=== PATIENT | male | born 1955 | race Caucasian/White ===

== ENCOUNTER 2019-03-18 09:22 | Inpatient (IN) | payer OTHER ==
[~2019-03-18] VITALS: Ht 154.9 cm; Wt 77.6 kg
[~2019-03-18 09:22] MED LIST: ACET-1082 PO; ALBU0.0912 IH; BUS5 PO; IBUP-2230 PO; METF500T PO; PARO30TA22 PO; QUET300T1 PO; TAMS0.4C96 PO
[2019-03-18 09:27] VITALS: BP 109/69
--- NOTE | 2019-03-18 09:35 | NUR ---
PATIENT AMBULATED STEADY GAIT TO BED 9.
--- NOTE | 2019-03-18 09:40 | NUR ---
63 Y/O M C/O LOWER ABDOMINAL PAIN 10/10 WHEN PRESSING ON THE LOWER ABDOMEN, NAUSEA COUGH AND VOMITING ONCE YESTERDAY WITH CHILLS, NO FEVER. NO BLOOD IN THE STOOL OR URINE. HX: SEIZURE 2 YEARS AGO, RIGHT HIP REPLACEMENT, ALLERGY TO FLU SHOT
--- NOTE | 2019-03-18 09:59 | NUR ---
ER AT BEDSIDE
[2019-03-18] MEDS ORDERED: KETOROLAC 30 MG/ML VIAL IVP ONE (10:00)
[2019-03-18] MEDS ORDERED: ONDANSETRON 4 MG/2 ML VIAL IVP ONE (10:00)
[2019-03-18] MEDS ORDERED: FAMOTIDINE 20 MG/2 ML VIAL IVP ONE (10:00)
[2019-03-18] MEDS ORDERED: NACL 0.9% 1,000 ML IV SCH (10:00)
--- NOTE | 2019-03-18 10:19 | NUR ---
PT GOING TO RADIOLOGY VIA W/C
[2019-03-18 10:37] LABS: BASOPHILS % (AUTO) 0.3 % (0.0-2.0); EOSINOPHILS # (AUTO) 0.2 K/uL (0-0.4); EOSINOPHILS % (AUTO) 5.4 % (0.0-4.0); HEMATOCRIT 40.2 % (36-52); HEMOGLOBIN 13.4 g/dL (12.0-18.0); LYMPHOCYTES # (AUTO) 0.4 K/uL (2.0-11.5); LYMPHOCYTES % (AUTO) 13.9 % (20.5-51.1); MEAN CORPUSCULAR HEMOGLOBIN 33 pg (27-31); MEAN CORPUSCULAR HGB CONC 33 g/dL (33-37); MEAN CORPUSCULAR VOLUME 100.7 fL (80-94); MONOCYTES # (AUTO) 0.3 K/uL (0.8-1.0); MONOCYTES % (AUTO) 8.6 % (1.7-9.3); NEUTROPHILS # (AUTO) 2.1 K/uL (1.8-7.7); NEUTROPHILS % (AUTO) 71.8 % (42.2-75.2); PLATELET COUNT (AUTO) 115 K/uL (140-450); WHITE BLOOD COUNT (AUTO) 2.9 K/uL (4.8-10.8)
[2019-03-18 11:11] LABS: BILIRUBIN,URINE NEGATIVE (NEGATIVE); BLOOD, URINE 3+ (NEGATIVE); COLOR,URINE YELLOW (YELLOW); LEUKOCYTE ESTERASE ,URINE NEGATIVE (NEGATIVE); NITRITE, URINE NEGATIVE (NEGATIVE); UGLUCOSE NEGATIVE (NEGATIVE)
[2019-03-18 11:22] LABS: ALBUMIN 3.2 g/dL (3.4-5.0); ANION GAP 9.9 (8-16); CARBON DIOXIDE 28.3 mmol/L (21-32); CREATININE 1.9 mg/dL (0.7-1.3); POTASSIUM 4.2 mmol/L (3.5-5.1); TOTAL BILIRUBIN 0.5 mg/dL (0.0-1.0)
[2019-03-18 11:37] LABS: RBC,URINE 11-20 (MOD) /HPF (0-5); WBC,URINE 0-5 /HPF (0-5)
[2019-03-18] MEDS ORDERED: DOCU-299 PO (11:37)
[2019-03-18] MEDS ORDERED: LAM25 PO (11:37)
[2019-03-18] MEDS ORDERED: BUS5 PO (11:37)
[2019-03-18] MEDS ORDERED: FINA5TAB1 PO (11:37)
[2019-03-18] MEDS ORDERED: ACET-1195 PO (11:37)
[2019-03-18] MEDS ORDERED: PAX20 PO (11:37)
[2019-03-18] MEDS ORDERED: [UNRECOGNIZED DRUG - CODE] PO (11:37)
[2019-03-18] MEDS ORDERED: ACET-8386 PO (11:37)
[2019-03-18 11:38] LABS: APPEARANCE,URINE SLIGHTLY HAZY (CLEAR)
[2019-03-18] MEDS ORDERED: NACL 0.9% 1,000 ML IV ONE (12:25)
[2019-03-18] MEDS ORDERED: ACETAMINOPHEN 325 MG TAB PO PRN (12:55)
[2019-03-18] MEDS: NACL 0.9% 1,000 ML IV SCH ×2 (12:55→22:55)
--- NOTE | 2019-03-18 13:20 | NUR ---
Patient will be admitted to care of DR. CEDEÑO. Admited to MED SURG TELE. Will go to room 119A. Belongings list completed. Report to JANNETTE DYSON.
--- NOTE | 2019-03-18 13:30 | NUR ---
RECEIVED PT FROM ED NURSE. PT IS AWAKE AND ALERT, AND AMBULATORY. NO S/S OF ACUTE DISTRESS OR C/O PAIN AT THIS TIME. PT IS ON ROOM AIR, SKIN IS INTACT. IV SITE R AC 20 G. MRSA NARES SWAB TAKEN. TELEMONITORING APPLIED. VS UPON ADMISSION: BP 98/68, HR 62, O2 97, TEMP 97.9, RR 18. CALL LIGHT GIVEN WITHIN REACH.
[2019-03-18] MEDS ORDERED: DOCUSATE SODIUM 100 MG GELCAP PO PRN (15:20)
[2019-03-18] MEDS ORDERED: ACETAMINOPHEN EXTRA STRENGTH 500 MG TAB PO PRN (15:20)
[2019-03-18] MEDS ORDERED: HYDROcodone/APAP 5/325 MG 1 TAB TAB PO PRN (15:20)
[2019-03-18 15:36] VITALS: BP 98/68
[2019-03-18 16:00] VITALS: BP 103/68
--- NOTE | 2019-03-18 16:27 | NUR ---
CALLED PT'S CAREGIVER, BAKARI, TO CLARIFY PT'S SEROQUEL DOSE. SHE STATES PT TAKES 100 MG SEROQUEL IN THE MORNING, AND 100 MG AT NIGHT. PHARMACIST MADE AWARE. Addendum: 03/18/19 at 1629 by Rebekah Montalvo RN CAREGIVER'S PHONE # is [phone]
--- NOTE | 2019-03-18 17:45 | NUR ---
PT SEEN BY DR ZHAO.
--- NOTE | 2019-03-18 19:18 | NUR ---
PT ENDORSED TO LINOTYPE WORKER NURSE IN STABLE CONDITION.
--- NOTE | 2019-03-18 19:18 | NUR ---
RECIEVED PT AAOX4 , IV SITE INTACT AND PATENT , AMBULATORY - WITH STABLE GAIT ALTHOUGH WITH HX OF HIP REPLACEMENT SURGERY , NO C/O PAIN AT THIS TIME . PLAN OF CARE DISCUSSED AND VERBALIZE UNDERSTANDING - CALL LIGHT WITHIN REACH . ON SAFETY PRECAUTION PROTOCOL - REMINDS HIM THE USE OF CALL LIGHT WHEN HE NEEDED HELP . WILL CONT. TO MONITOR.
[2019-03-18 20:00] VITALS: BP 110/60
[2019-03-18] MEDS: COLCHICINE 0.6 MG TAB PO SCH (21:00)
[2019-03-18] MEDS ORDERED: QUETIAPINE FUMARATE PO SCH (21:00)
[2019-03-18] MEDS: busPIRone 5 MG TAB PO SCH (21:05)
[2019-03-18] MEDS: QUEtiapine FUMARATE 100 MG TAB PO SCH (21:06)
[2019-03-18] MEDS: lamoTRIgine 25 MG TAB PO SCH (21:06)
--- NOTE | 2019-03-18 22:00 | NUR ---
MADE ROUNDS , NO COMPLAIN MADE AT THIS TIME , CALL LIGHT WITHIN REACH - WILL CONT. TO MONITOR.
[2019-03-19] VITALS (7 sets, daily range): BP systolic 98–132; BP diastolic 60–82
--- NOTE | 2019-03-19 | NUR ---
ASSIST TO BATHROOM - VOIDED FREELY - BACK TO BED NO C/O MADE AT THIS TIME . CALL LIGHT WITHIN REACH.
[2019-03-19] MEDS: NACL 0.9% 1,000 ML IV SCH ×2 (03:47→17:43)
--- NOTE | 2019-03-19 04:00 | NUR ---
MADE ROUNDS NO SIGNS OF DISTRESS NOTED AT THIS TIME . CALL LIGHT WITHIN REACH.
[2019-03-19 07:01] LABS: ANION GAP 10.2 (8-16); CREATININE 1.7 mg/dL (0.7-1.3); POTASSIUM 4.2 mmol/L (3.5-5.1)
--- NOTE | 2019-03-19 07:30 | NUR ---
ENDORSED TO AM SHIFT , NO N/V , NO DIARRHEA , NO ABDL. PAIN FOR THE WHOLE NIGHT . STABLE CONDITION.
--- NOTE | 2019-03-19 07:31 | NUR ---
RECEIVED BEDSIDE REPORT FROM WELLNESS ASSISTANT. PATIENT IS AWAKE, ALERT AND ORIENTEDX4. NO SIGNS OF DISTRESS ON RA. PATIENT HAS A MENTAL DELAY. SKIN IS INTACT. AMBULATORY. CONTINENT. ABLE TO MAKE NEEDS KNOWN. IV ON R AC 20G INFUSING NS AT 100. CLEAN, DRY AND INTACT. TELE MONITOR IN PLACE. BED IN LOW POSITION. CALL LIGHT WITHIN REACH. WILL CONTINUE TO MONITOR THE PATIENT
--- NOTE | 2019-03-19 08:27 | NUR ---
PATIENT HAS BEEN SCREENED AND CATEGORIZED MODERATE NUTRITION RISK. PATIENT WILL BE SEEN WITHIN 3-5 DAYS OF ADMISSION. 03/21/19 03/23/[address]
[2019-03-19] MEDS: FAMOTIDINE 20 MG TAB PO SCH (09:11)
[2019-03-19] MEDS: busPIRone 5 MG TAB PO SCH ×2 (09:11→20:10)
[2019-03-19] MEDS: NAPROXEN 500 MG TAB PO SCH ×2 (09:12→17:43)
[2019-03-19] MEDS: lamoTRIgine 25 MG TAB PO SCH ×2 (09:12→20:11)
[2019-03-19] MEDS: PARoxetine 20 MG TAB PO SCH (09:12)
[2019-03-19] MEDS: QUEtiapine FUMARATE 100 MG TAB PO SCH ×2 (09:13→20:11)
[2019-03-19] MEDS: COLCHICINE 0.6 MG TAB PO SCH ×2 (09:13→20:11)
[2019-03-19] MEDS: FINASTERIDE 5 MG TAB PO SCH (09:13)
--- NOTE | 2019-03-19 09:18 | NUR ---
ADMINISTERED MEDS. PATIENT TOLERATED WELL. EDUCATED ON SIDE EFFECTS. WILL CONTINUE TO MONITOR THE PATIENT
--- NOTE | 2019-03-19 11:28 | NUR ---
Relay Mechanic Note: Basic Screen: Yes High Risk DC Screen Yes Name: JADON PALMA Home Relationship: BROTHER Pre-Admission Living Arrangements: Lives with Other Other: JOSE BAILON [phone] - [facility] Prior ADL Needs Assistance Current Home Health Name/Tel: N/A Current DME/02 Name/Tel: N/A Current Hospice Name/Tel: N/A Current Dialysis Name/Tel: N/A Healthcare Decision Maker: Next of Kin Other: JADON PALMA Advance Directive No Physician Orders for Life Sustaining Treatment Form No Patient/Family Have Educational Needs No Discipline: Case Mgt/Social Svcs Tentative Discharge Plan/Destination: No Needs Identified Will require assistance post discharge: No Referred to Diesel Engine Assembler: No Tentative Discharge Plan Summary: Patient is a 63-year-old male admitted for abdominal pain. Patient has PMHX of autism and developmental delays. Patient was admitted from home. SW contacted Jose Bailon, patient's primary caregiver [phone]. Per Jose, patient lives with her family through [facility]. Jose stated that patient has a [place] Dispatcher Street Department named Shelton Cuba [phone] who checks on patient weekly. Jose stated that patient's healthcare decision maker is brother, Jadon Palma [phone] and his IRC Worker is Alexandria Jamison [phone]. Per Jose, patient's IRC Worker is aware of his hospitalization. Jose stated that patient's tentative plan after discharge is to return to her home. No further needs identified. Signature: ANGELA Vazquez Date: Mar 19, 2019 Time: 11:26
--- NOTE | 2019-03-19 11:30 | NUR ---
PATIENT IN NO DISTRESS. NO COMPLAINTS AT THIS TIME. WILL CONTINUE TO MONITOR THE PATIENT
--- NOTE | 2019-03-19 13:42 | NUR ---
PATIENT LAYING IN BED. NO SIGNS OF DISTRESS. WILL CONTINUE TO MONITOR THE PATIENT.
--- NOTE | 2019-03-19 14:43 | NUR ---
PATIENT IS SLEEPING. NO SIGNS OF DISTRESS. WILL CONTINUE TO MONITOR
--- NOTE | 2019-03-19 14:48 | NUR ---
DC [age] YRS OLD MALE WAS ADMITTED FROM THE RETIREMENT WITH A DX OF ABDOMINAL PAIN. PT HAS A HX OF PSYCHIATRIC DISORDER , MENTALLY DELAYED. CT ABD/ PELVIS PERICARDIAC EFFUSION AND COLONIC DIVERTICULOSIS AND DHN. ADMINISTERED IVF CARDIOLOGY CONSULT FOR PERICARDIAC EFFUSION AND ECHO ORDERED. DC PLAN TO GO BACK TO RETIREMENT WHEN STABLE FOR DISCHARGE. CM TO FOLLOW
--- NOTE | 2019-03-19 16:00 | NUR ---
PATIENT RESTING IN BED. WILL CONTINUE TO MONITOR
--- NOTE | 2019-03-19 17:46 | NUR ---
ADMINISTERED MEDS. PATIENT TOLERATED WELL. WILL CONTINUE TO MONITOR THE PATIENT
--- NOTE | 2019-03-19 19:05 | NUR ---
GAVE BEDSIDE REPORT TO LAWN TECHNICIAN NURSE. ENDORSED PATIENT IN STABLE CONDITION
--- NOTE | 2019-03-19 19:35 | NUR ---
RECEIVED REPORT FROM AM RN IN BED AWAKE AND ALERT. PT. MENTALLY CHALLENGED. ABLE TO VERBALIZE NEEDS WELL. DX. OF ABDOMINAL PAIN. CONSULT WITH Nicki WILSON/MACHINE IRONER. ABLE TO VERBALIZE NEEDS WELL. IVF SITE TO RIGHT AC # [address] AND WITH GOOD BLOOD RETURN. TELEMETRY MONITORING.
--- NOTE | 2019-03-19 20:14 | NUR ---
ALL P.O. MEDICATIONS TAKEN WELL. NO S/S OF ASPIRATIONS. NO N/V. ABLE TO VERBALIZE NEEDS WELL.
[2019-03-19] MEDS ORDERED: TAMSULOSIN 0.4 MG CAP PO SCH (21:00)
--- NOTE | 2019-03-19 22:41 | NUR ---
PT. WALKING WITH POLE WITH HIM INSIDE ROOM. ENCOURAGED TO STAY IN BED AND REST RT SLEEPING TIME. "OK" NO COMPLAINTS OF ANY PAIN AT THIS TIME. ON TELEMETRY MONITORING.
--- NOTE | 2019-03-19 23:09 | NUR ---
PT. SLEEPING. WOKE UP EASILY WHEN CHECKED ON HIM. PROVIDED WITH WARM BLANKET RT HE SAID HE WAS COLD RT ROOM COLD. NO SOB. NO PAIN COMPLAINTS DONE. VERY HAPPY WITH WARM BLANKET PROVIDED. ABLE TO VERBALIZE SIMPLE NEEDS WELL. BED ALARM ON. CALL LIGHT WITH IN REACH.
--- NOTE | 2019-03-20 02:29 | NUR ---
PT. SLEEPING. NO RESTLESSNESS. CALL LIGHT WITH IN REACH. TELEMETRY MONITORING.
--- NOTE | 2019-03-20 04:22 | NUR ---
PT. AWAKE AND WENT RESTROOM. NO ASSIST NEEDED IN AMBULATING. ROM X 4. STANDS UP WELL ON HIS OWN. ABLE TO VERBALIZE SIMPLE NEEDS. DENIES ANY PAIN. NO SOB.
[2019-03-20 04:34] VITALS: BP 122/76
[2019-03-20] MEDS: NACL 0.9% 1,000 ML IV SCH ×2 (05:20→14:55)
--- NOTE | 2019-03-20 06:02 | NUR ---
PT. SLEEPING WELL THIS SHIFT. NO COMPLAINTS DONE. INDEPENDENT.
[2019-03-20 07:07] LABS: BASOPHILS % (AUTO) 0.5 % (0.0-2.0); EOSINOPHILS # (AUTO) 0.3 K/uL (0-0.4); EOSINOPHILS % (AUTO) 7.2 % (0.0-4.0); HEMOGLOBIN 12.9 g/dL (12.0-18.0); LYMPHOCYTES # (AUTO) 0.5 K/uL (2.0-11.5); LYMPHOCYTES % (AUTO) 14.6 % (20.5-51.1); MEAN CORPUSCULAR HEMOGLOBIN 33 pg (27-31); MEAN CORPUSCULAR HGB CONC 33 g/dL (33-37); MEAN CORPUSCULAR VOLUME 100.5 fL (80-94); MONOCYTES # (AUTO) 0.4 K/uL (0.8-1.0); MONOCYTES % (AUTO) 9.6 % (1.7-9.3); NEUTROPHILS # (AUTO) 2.5 K/uL (1.8-7.7); NEUTROPHILS % (AUTO) 68.1 % (42.2-75.2); PLATELET COUNT (AUTO) 106 K/uL (140-450); RED BLOOD CELL COUNT(AUTO) 3.88 MIL/uL (4.20-6.10); RED CELL DISTRIBUTION WIDTH 13.2 % (11.6-13.7); WHITE BLOOD COUNT (AUTO) 3.7 K/uL (4.8-10.8)
[2019-03-20 07:15] LABS: ANION GAP 11.4 (8-16); CREATININE 1.5 mg/dL (0.7-1.3); POTASSIUM 5.4 mmol/L (3.5-5.1)
--- NOTE | 2019-03-20 07:30 | NUR ---
Received report from lieutenant shift supervisor nurse. Pt is in bed in stable condition. No distress noted. Call light in reach.
[2019-03-20 08:00] VITALS: BP 138/82
[2019-03-20] MEDS: FAMOTIDINE 20 MG TAB PO SCH (09:17)
[2019-03-20] MEDS: PARoxetine 20 MG TAB PO SCH (09:17)
[2019-03-20] MEDS: lamoTRIgine 25 MG TAB PO SCH (09:17)
[2019-03-20] MEDS: FINASTERIDE 5 MG TAB PO SCH (09:17)
[2019-03-20] MEDS: QUEtiapine FUMARATE 100 MG TAB PO SCH (09:18)
[2019-03-20] MEDS: busPIRone 5 MG TAB PO SCH (09:19)
--- NOTE | 2019-03-20 09:52 | NUR ---
Received call from lab at 0994. Lab reported that pt is MRSA positive.
--- NOTE | 2019-03-20 10:37 | NUR ---
Pt is resting in bed in stable condition. Call light in reach.
[2019-03-20] MEDS ORDERED: MUPIROCIN CA NASAL 2% 1GM TUBE NS SCH (11:00)
[2019-03-20] MEDS ORDERED: CHLORHEXADINE GLUC 2% CLOTH TP SCH (11:00)
--- NOTE | 2019-03-20 11:43 | NUR ---
Talked to raulito brother made aware patient is for discharge, per raulito he will call correction ,and correction will contact us for the time of picker / packer
[2019-03-20 12:00] VITALS: BP 111/65
[2019-03-20] MEDS ORDERED: SODIUM ZIRCONIUM CYCLOSILICATE 10 GM POWD.PACK PO SCH (12:13)
--- NOTE | 2019-03-20 12:35 | NUR ---
Pt was to be discharged. Pt's potassium was 5.4. Called Dr Howell. As per Dr Howell give 20 gms, kayexalate. As per pharmacy give celine. Celine given. Ordered BMP as per Dr. Howell to check potassium values before discharge.
--- NOTE | 2019-03-20 15:00 | NUR ---
Pt is in bed in stable condition. Waiting for lab results before discharge. carton lettering machine operator by bedside. Call light in reach.
[2019-03-20 15:47] LABS: ANION GAP 11.9 (8-16); CREATININE 1.5 mg/dL (0.7-1.3); POTASSIUM 4.9 mmol/L (3.5-5.1)
--- NOTE | 2019-03-20 16:40 | NUR ---
Pt was discharged today. Pt's discharge instructions given to patient. Pt's belongings with patient. Pt's IV line removed. Catheter intact. No active bleeding noted. ID band removed. Pt's manager long term care was with patient at discharge. Pt walked with steady gait from bed to wheel chair. No distress noted. No complains of pain reported. Pt will make appointment with PCP.
--- NOTE | 2019-03-27 10:59 | NUR ---
PCP Appointment: SW attempted to contact patient's PCP to schedule appointment. Patient's PCP office was unable to be reached and voicemail box was full. SW will follow up.
== END 2019-03-20 16:25 | disposition home or self-care (01) | DRG 249 ==
LOC: MED 09:22 → MTU 12:36
PROVIDERS: ADMIT Internal Medicine Pulmonary Disease; ATTEND Internal Medicine Pulmonary Disease
DX: A08.4 Viral intestinal infection, unspecified (principal); N17.0 Acute kidney failure with tubular necrosis; I31.3 Pericardial effusion (noninflammatory); E86.0 Dehydration; K57.30 Diverticulosis of large intestine without perforation or abscess without bleeding; K40.90 Unilateral inguinal hernia, without obstruction or gangrene, not specified as recurrent; F29 Unspecified psychosis not due to a substance or known physiological condition; Z91.010 Allergy to peanuts; Z88.0 Allergy status to penicillin; Z88.8 Allergy status to other drugs, medicaments and biological substances; Z91.018 Allergy to other foods; Z79.899 Other long term (current) drug therapy
CPT/HCPCS: 36415; 80048; 80053; 81001; 83605; 83690; 83735; 85025; 87040; 87081; 93005; 96361; 96374; 96375; 97116; 97161-GP; 97530; 99285; J1885; J2405; J3490; J7030

== ENCOUNTER 2019-03-22 22:49 | Emergency (ER) | payer OTHER ==
[~2019-03-22] VITALS: Ht 165.1 cm; Wt 79.8 kg
[~2019-03-22 22:49] MED LIST changes: -ACET-1082 PO; +ACET-1195 PO; +ACET-8386 PO; -ALBU0.0912 IH; +DOCU-299 PO; +FINA5TAB1 PO; -IBUP-2230 PO; +LAM25 PO; -METF500T PO; -PARO30TA22 PO; +PAX20 PO; -QUET300T1 PO; +[UNRECOGNIZED DRUG - CODE] PO
--- NOTE | 2019-03-22 22:50 | NUR ---
TO BED # 12 AMBULATORY
[2019-03-22 22:51] VITALS: BP 120/67
[2019-03-22] MEDS ORDERED: LACTULOSE 20 GM/30 ML UDC PO ONE (23:10)
--- NOTE | 2019-03-22 23:25 | NUR ---
# 16 FR Coude catheter with 10 ml utilizing sterile technique. Immediate return of 100 ml PEDRO LUIS, CLOUDY urine noted. Bedside drainage bag placed below level of bladder. Pt tolerated procedure well.
--- NOTE | 2019-03-22 23:40 | NUR ---
63 Y/O MALE BIB BY DAUGHTER. PT. STATES HE COULD NOT URINATE SINCE THIS MORNING, D/C FROM [place] THIS MORNING. ERMD MADE AWARE OF STATUS. VSS. DAUGHTER AT BEDSIDE. WILL CONTINUE TO MONITOR. RX:TAMULOSIN; FINASTERIDE; LAMOTRIGINE; QUETIAPINE; BUSPIRONE; ACETAMINOPHEN; DOCUSATE; HYDROCODONE ALLERGIES: PENICILLINS; BUPROPRION, HONEY; PEANUT
[2019-03-23 00:50] VITALS: BP 118/65
--- NOTE | 2019-03-23 00:50 | NUR ---
Patient discharged with v/s stable. Written and verbal after care instructions given and explained. Patient alert, oriented and verbalized understanding of instructions. Ambulatory with steady gait. All questions addressed prior to discharge. ID band removed. Patient advised to follow up with PMD. Rx of LACTULOSE given. PATIENT AND PATIENT'S DAUGHTER educated on indication of medication including possible reaction and side effects. Opportunity to ask questions provided and answered.
== END 2019-03-23 00:50 | disposition home or self-care (01) ==
LOC: MED 22:49
DX: R33.9 Retention of urine, unspecified (principal); K59.00 Constipation, unspecified; Z88.0 Allergy status to penicillin; Z91.010 Allergy to peanuts; Z91.018 Allergy to other foods; Z79.899 Other long term (current) drug therapy
CPT/HCPCS: 51702; 99283; 99284

== ENCOUNTER 2019-04-15 18:00 | Emergency (ER) | payer OTHER ==
[~2019-04-15] VITALS: Ht 165.1 cm; Wt 70.8 kg
[2019-04-15 18:00] VITALS: BP 108/76
--- NOTE | 2019-04-15 18:08 | NUR ---
PT W/C ASSISTED TO BED 11.
--- NOTE | 2019-04-15 18:09 | NUR ---
PT TRUONG CATH IN PLACE, BALLOON DEFLATED, CATH PUSHED IN FURTHER, BALLOON REINFLATED, SMALL AMOUNT OF URINE DRAINING. PT GIVEN WATER, WILL MONITOR EFFECTIVENESS OF URINE OUTPUT.
--- NOTE | 2019-04-15 18:43 | NUR ---
BIB VIA WHEELCHAIR PT WAS SHOWERING THIS AFTERNOON AND BELIEVES THAT INDWELLING TRUONG CATH WAS PULLED OUT SLIGHTLY AND BALLOON BECAME DISLODGED. UPON ARRIVAL TO ER, TRUONG BALLOON WAS DEFLATED AND CATHETER WAS ADVANCED UNTIL URINE BEGAN FLOWING. PATIENT C/O CHRONIC PAIN IN RIGHT LOWER QUADRANT. INTENSIVE PMH INCLUDING: AUTISM, CANCER, LOW KIDNEY FUNCTION, KIDNEY STONES, HTN, KIDNEY STONES
--- NOTE | 2019-04-15 19:07 | NUR ---
COLLECTED URINE FOR DIPSTICK VIA TRUONG CATH
--- NOTE | 2019-04-15 19:17 | NUR ---
REPORT RECEIVED FROM JNANETTE SUAREZ.
--- NOTE | 2019-04-15 19:38 | NUR ---
Dr. Obrien examining patient.
[2019-04-15 19:42] LABS: APPEARANCE,URINE SL CLOUDY (CLEAR); BILIRUBIN,URINE NEGATIVE (NEGATIVE); BLOOD, URINE 3+ (NEGATIVE); LEUKOCYTE ESTERASE ,URINE 1+ (NEGATIVE); NITRITE, URINE NEGATIVE (NEGATIVE); UGLUCOSE NEGATIVE (NEGATIVE)
[2019-04-15 19:43] LABS: COLOR,URINE PINK (YELLOW)
--- NOTE | 2019-04-15 19:50 | NUR ---
PATIENT IS SITTING IN BED. IS AT BEDSIDE. WILL CONTINUE TO MONITOR.
[2019-04-15 20:07] LABS: RBC,URINE >100 /HPF (0-5); WBC,URINE 0-5 /HPF (0-5)
[2019-04-15 21:00] VITALS: BP 105/77
--- NOTE | 2019-04-15 21:00 | NUR ---
Patient discharged with v/s stable. Written and verbal after care instructions given and explained. Patient verbalized understanding. Ambulatory with walker. All questions addressed prior to discharge. Advised to follow up with PMD.
== END 2019-04-15 21:00 | disposition home or self-care (01) ==
LOC: MED 18:00
DX: T83.098A Other mechanical complication of other urinary catheter, initial encounter (principal); K40.90 Unilateral inguinal hernia, without obstruction or gangrene, not specified as recurrent; I10 Essential (primary) hypertension; Z79.899 Other long term (current) drug therapy; Z79.891 Long term (current) use of opiate analgesic; Z88.0 Allergy status to penicillin; Z91.010 Allergy to peanuts; Z91.018 Allergy to other foods; Z88.8 Allergy status to other drugs, medicaments and biological substances; Y84.6 Urinary catheterization as the cause of abnormal reaction of the patient, or of later complication, without mention of misadventure at the time of the procedure
CPT/HCPCS: 81001; 87086; 99283

== ENCOUNTER 2021-10-28 11:53 | Emergency (ER) | payer OTHER ==
[~2021-10-28] VITALS: Ht 167.6 cm; Wt 72.6 kg
[2021-10-28 11:57] VITALS: BP 113/62
[2021-10-28] MEDS ORDERED: NAPR-1704 PO (13:30)
--- NOTE | 2021-10-28 13:37 | NUR ---
Patient discharged with v/s stable. Written and verbal after care instructions ABOUT COSTOCHONDRITIS given and explained. Patient alert, oriented and verbalized understanding of instructions. Ambulatory with steady gait. All questions addressed prior to discharge. ID band removed. Patient advised to follow up with PMD. Rx of NAPROXEN given. Patient educated on indication of medication including possible reaction and side effects. Opportunity to ask questions provided and answered.
== END 2021-10-28 13:37 | disposition home or self-care (01) ==
LOC: MED 11:53
DX: M94.0 Chondrocostal junction syndrome [Tietze] (principal); M25.561 Pain in right knee; E11.9 Type 2 diabetes mellitus without complications; I10 Essential (primary) hypertension; F84.0 Autistic disorder; Z88.0 Allergy status to penicillin; Z88.6 Allergy status to analgesic agent; Z91.010 Allergy to peanuts; Z88.8 Allergy status to other drugs, medicaments and biological substances; Z79.899 Other long term (current) drug therapy
CPT/HCPCS: 71101; 99283

== ENCOUNTER 2023-10-19 07:18 | Inpatient (IN) | payer OTHER, MEDICARE ==
[2023-10-19] VITALS (7 sets, daily range): BP systolic 125–182; BP diastolic 78–90; PULSE 61–76; RESP 18–20; TEMP 97.1–97.8; O2SAT 96–99
[~2023-10-19] VITALS: Ht 165.1 cm; Wt 70.3 kg
[~2023-10-19 07:18] MED LIST changes: -ACET-8386 PO; +ACET-8905 PO; +FINA-54 PO; -FINA5TAB1 PO; +NAPR-1704 PO; +[UNRECOGNIZED DRUG - CODE] PO; -[UNRECOGNIZED DRUG - CODE] PO
[2023-10-19 08:34] LABS: BASOPHILS % (AUTO) 0.7 % (0.0-2.0); EOSINOPHILS # (AUTO) 0.3 K/uL (0-0.4); EOSINOPHILS % (AUTO) 6.7 % (0.0-4.0); HEMATOCRIT 41.1 % (36-52); HEMOGLOBIN 13.8 g/dL (12.0-18.0); LYMPHOCYTES # (AUTO) 0.7 K/uL (2.0-11.5); LYMPHOCYTES % (AUTO) 16.5 % (20.5-51.1); MEAN CORPUSCULAR HEMOGLOBIN 34 pg (27-31); MEAN CORPUSCULAR HGB CONC 34 g/dL (33-37); MEAN CORPUSCULAR VOLUME 100.3 fL (80-94); MONOCYTES # (AUTO) 0.3 K/uL (0.8-1.0); MONOCYTES % (AUTO) 7.6 % (1.7-9.3); NEUTROPHILS # (AUTO) 2.8 K/uL (1.8-7.7); NEUTROPHILS % (AUTO) 68.5 % (42.2-75.2); PLATELET COUNT (AUTO) 125 K/uL (140-450); RED CELL DISTRIBUTION WIDTH 12.9 % (11.6-13.7); WHITE BLOOD COUNT (AUTO) 4.1 K/uL (4.8-10.8)
[2023-10-19 08:49] LABS: ANION GAP 11.4 (8-16); CALCIUM 8.5 mg/dL (8.5-10.1); CARBON DIOXIDE 27.4 mmol/L (21-32); CREATININE 3.2 mg/dL (0.6-1.3); POTASSIUM 4.8 mmol/L (3.5-5.1)
[2023-10-19] MEDS: NACL 0.9% 1,000 ML IV ONE (08:49)
[2023-10-19 08:58] LABS: INR 1.06 (0.8-1.2); PARTIAL THROMBOPLASTIN TIME 27.3 secs (22-35.6); PROTHROMBIN TIME 11.1 secs (10.8-13.4)
[2023-10-19 09:07] LABS: ALANINE AMINOTRANSFERASE 31 U/L (12-78); ALBUMIN 3.4 g/dL (3.4-5.0); ALKALINE PHOSPHATASE 83 U/L (50-136); ASPARTATE AMINOTRANSFERASE 13 U/L (15-37); BILIRUBIN,DIRECT 0.1 mg/dL (0.0-0.3); CREATINE KINASE, TOTAL 43 U/L (39-308); MAGNESIUM 2.3 mg/dL (1.8-2.4); PHOSPHORUS 3.1 mg/dL (2.5-4.9); THYROID STIMULATING HORMONE 0.62 uIU/mL (0.34-3.74); TOTAL BILIRUBIN 0.3 mg/dL (0.0-1.0); TOTAL PROTEIN, SERUM 6.6 g/dL (6.4-8.2)
[2023-10-19 09:17] LABS: FLU A ANTIGEN negative (NEGATIVE); FLU B ANTIGEN NEGATIVE (NEGATIVE)
[2023-10-19] MEDS ORDERED: AMMONIA AROMATIC 1 INHL INH ONE (10:05)
[2023-10-19] MEDS: AMMONIA AROMATIC 1 INHL INH ONE (10:13)
[2023-10-19 10:31] LABS: APPEARANCE,URINE CLEAR (CLEAR); BILIRUBIN,URINE NEGATIVE (NEGATIVE); BLOOD, URINE 2+ (NEGATIVE); COLOR,URINE YELLOW (YELLOW); LEUKOCYTE ESTERASE ,URINE NEGATIVE (NEGATIVE); NITRITE, URINE NEGATIVE (NEGATIVE); PROTEIN,URINE 1+ (NEGATIVE); UGLUCOSE TRACE (NEGATIVE); UROBILINOGEN,URINE 0.2 EU/dL (0.2 - 1)
[2023-10-19] MEDS: amLODIPine 5 MG TAB PO ONE (11:02)
[2023-10-19 11:06] LABS: BACTERIA,URINE 0-2 /HPF (None Seen); RBC,URINE 11-20 (MOD) /HPF (0-5); SQUAMOUS EPITHELIAL CELL,UR 0-3 (FEW) /LPF (0-3 (FEW)); WBC,URINE 0-5 /HPF (0-5)
[2023-10-19] MEDS ORDERED: ALBUTEROL 0.083% 2.5 MG/3 ML NEBU INH PRN (11:25)
[2023-10-19] MEDS ORDERED: hydrALAZINE 20 MG/ML VIAL IVP PRN (11:30)
[2023-10-19] MEDS ORDERED: DOCUSATE SODIUM 100 MG GELCAP PO PRN (11:30)
[2023-10-19] MEDS: NACL 0.9% 1,000 ML IV SCH (11:58)
[2023-10-19] MEDS: ACETAMINOPHEN 325 MG TAB PO PRN (14:22)
[2023-10-19] MEDS: busPIRone 5 MG TAB PO SCH (21:17)
[2023-10-19] MEDS: lamoTRIgine 25 MG TAB PO SCH (21:18)
[2023-10-20] VITALS (12 sets, daily range): BP systolic 141–163; BP diastolic 87–98; PULSE 59–81; RESP 16–19; TEMP 97.1–209.7; O2SAT 95–100
[2023-10-20] MEDS: HYDROcodone/APAP 5/325 MG 1 TAB TAB PO PRN (01:36)
[2023-10-20 05:33] LABS: BASOPHILS % (AUTO) 0.4 % (0.0-2.0); EOSINOPHILS # (AUTO) 0.2 K/uL (0-0.4); EOSINOPHILS % (AUTO) 3.7 % (0.0-4.0); HEMATOCRIT 39.1 % (36-52); HEMOGLOBIN 13.2 g/dL (12.0-18.0); LYMPHOCYTES % (AUTO) 15.2 % (20.5-51.1); MEAN CORPUSCULAR HEMOGLOBIN 34 pg (27-31); MEAN CORPUSCULAR HGB CONC 34 g/dL (33-37); MEAN CORPUSCULAR VOLUME 99.4 fL (80-94); MONOCYTES # (AUTO) 0.6 K/uL (0.8-1.0); MONOCYTES % (AUTO) 8.6 % (1.7-9.3); NEUTROPHILS # (AUTO) 4.6 K/uL (1.8-7.7); NEUTROPHILS % (AUTO) 72.1 % (42.2-75.2); PLATELET COUNT (AUTO) 126 K/uL (140-450); RED BLOOD CELL COUNT(AUTO) 3.93 MIL/uL (4.20-6.10); RED CELL DISTRIBUTION WIDTH 12.7 % (11.6-13.7); WHITE BLOOD COUNT (AUTO) 6.4 K/uL (4.8-10.8)
[2023-10-20 06:03] LABS: ANION GAP 12.7 (8-16); CALCIUM 8.6 mg/dL (8.5-10.1); CARBON DIOXIDE 25.2 mmol/L (21-32); CREATININE 3.1 mg/dL (0.6-1.3); POTASSIUM 4.9 mmol/L (3.5-5.1)
[2023-10-20] MEDS: TAMSULOSIN 0.4 MG CAP PO SCH (08:53)
[2023-10-20] MEDS: FINASTERIDE 5 MG TAB PO SCH (08:53)
[2023-10-20] MEDS: PARoxetine 20 MG TAB PO SCH (08:54)
[2023-10-20] MEDS: MEDS-TO-BEDS MC SCH (09:00)
[2023-10-20] MEDS: ONDANSETRON 4 MG/2 ML VIAL IVP PRN (18:35)
[2023-10-21] VITALS (9 sets, daily range): BP systolic 122–150; BP diastolic 70–86; PULSE 60–95; RESP 16–20; TEMP 97.1–98.4; O2SAT 92–99
[2023-10-21 05:51] LABS: BASOPHILS # (AUTO) 0.1 K/uL (0.00-0.22); EOSINOPHILS # (AUTO) 0.2 K/uL (0-0.4); EOSINOPHILS % (AUTO) 4.1 % (0.0-4.0); HEMATOCRIT 38.2 % (36-52); HEMOGLOBIN 12.9 g/dL (12.0-18.0); LYMPHOCYTES # (AUTO) 0.7 K/uL (2.0-11.5); LYMPHOCYTES % (AUTO) 12.4 % (20.5-51.1); MEAN CORPUSCULAR HEMOGLOBIN 34 pg (27-31); MEAN CORPUSCULAR HGB CONC 34 g/dL (33-37); MEAN CORPUSCULAR VOLUME 99.5 fL (80-94); MONOCYTES # (AUTO) 0.4 K/uL (0.8-1.0); MONOCYTES % (AUTO) 7.2 % (1.7-9.3); NEUTROPHILS # (AUTO) 4.3 K/uL (1.8-7.7); NEUTROPHILS % (AUTO) 75.3 % (42.2-75.2); PLATELET COUNT (AUTO) 124 K/uL (140-450); RED BLOOD CELL COUNT(AUTO) 3.84 MIL/uL (4.20-6.10); RED CELL DISTRIBUTION WIDTH 12.8 % (11.6-13.7); WHITE BLOOD COUNT (AUTO) 5.7 K/uL (4.8-10.8)
[2023-10-21 06:04] LABS: ANION GAP 12.6 (8-16); CALCIUM 8.7 mg/dL (8.5-10.1); CARBON DIOXIDE 26.4 mmol/L (21-32); CREATININE 2.8 mg/dL (0.6-1.3)
[2023-10-22] VITALS (9 sets, daily range): BP systolic 120–138; BP diastolic 76–93; PULSE 68–93; RESP 18–19; TEMP 96.7–98; O2SAT 6–100
[2023-10-22 05:45] LABS: BASOPHILS % (AUTO) 0.2 % (0.0-2.0); EOSINOPHILS # (AUTO) 0.4 K/uL (0-0.4); EOSINOPHILS % (AUTO) 5.6 % (0.0-4.0); HEMATOCRIT 40.2 % (36-52); HEMOGLOBIN 13.7 g/dL (12.0-18.0); LYMPHOCYTES # (AUTO) 0.8 K/uL (2.0-11.5); LYMPHOCYTES % (AUTO) 12.9 % (20.5-51.1); MEAN CORPUSCULAR HEMOGLOBIN 34 pg (27-31); MEAN CORPUSCULAR HGB CONC 34 g/dL (33-37); MEAN CORPUSCULAR VOLUME 98.8 fL (80-94); MONOCYTES # (AUTO) 0.5 K/uL (0.8-1.0); MONOCYTES % (AUTO) 7.7 % (1.7-9.3); NEUTROPHILS # (AUTO) 4.8 K/uL (1.8-7.7); NEUTROPHILS % (AUTO) 73.6 % (42.2-75.2); PLATELET COUNT (AUTO) 129 K/uL (140-450); RED BLOOD CELL COUNT(AUTO) 4.07 MIL/uL (4.20-6.10); RED CELL DISTRIBUTION WIDTH 12.7 % (11.6-13.7); WHITE BLOOD COUNT (AUTO) 6.5 K/uL (4.8-10.8)
[2023-10-22 06:25] LABS: ANION GAP 14.4 (8-16); CALCIUM 9.2 mg/dL (8.5-10.1); CARBON DIOXIDE 25.6 mmol/L (21-32); CREATININE 2.9 mg/dL (0.6-1.3)
[2023-10-22 14:34] LABS: APPEARANCE,URINE SL CLOUDY (CLEAR); BILIRUBIN,URINE NEGATIVE (NEGATIVE); BLOOD, URINE 3+ (NEGATIVE); COLOR,URINE YELLOW (YELLOW); LEUKOCYTE ESTERASE ,URINE 2+ (NEGATIVE); NITRITE, URINE POSITIVE (NEGATIVE); PROTEIN,URINE 2+ (NEGATIVE); UGLUCOSE NEGATIVE (NEGATIVE); UROBILINOGEN,URINE 0.2 EU/dL (0.2 - 1)
[2023-10-22 14:40] LABS: RBC,URINE TOO NUMEROUS TO COUN /HPF (0-5)
[2023-10-22 14:41] LABS: WBC,URINE >25 (MANY) /HPF (0-5)
[2023-10-22 14:42] LABS: BACTERIA,URINE None Seen /HPF (None Seen); MUCUS,URINE 1+ /LPF (None Seen); SQUAMOUS EPITHELIAL CELL,UR None Seen /LPF (0-3 (FEW))
[2023-10-23] VITALS (8 sets, daily range): BP systolic 123–126; BP diastolic 65–83; PULSE 68–89; RESP 16–20; TEMP 97–98.7; O2SAT 92–99
[2023-10-23 05:31] LABS: BASOPHILS % (AUTO) 0.3 % (0.0-2.0); EOSINOPHILS # (AUTO) 0.3 K/uL (0-0.4); EOSINOPHILS % (AUTO) 3.9 % (0.0-4.0); HEMATOCRIT 37.3 % (36-52); HEMOGLOBIN 12.7 g/dL (12.0-18.0); LYMPHOCYTES # (AUTO) 0.8 K/uL (2.0-11.5); LYMPHOCYTES % (AUTO) 12.4 % (20.5-51.1); MEAN CORPUSCULAR HEMOGLOBIN 33 pg (27-31); MEAN CORPUSCULAR HGB CONC 34 g/dL (33-37); MEAN CORPUSCULAR VOLUME 98.4 fL (80-94); MONOCYTES # (AUTO) 0.7 K/uL (0.8-1.0); MONOCYTES % (AUTO) 10.4 % (1.7-9.3); NEUTROPHILS # (AUTO) 4.8 K/uL (1.8-7.7); PLATELET COUNT (AUTO) 125 K/uL (140-450); RED BLOOD CELL COUNT(AUTO) 3.79 MIL/uL (4.20-6.10); RED CELL DISTRIBUTION WIDTH 12.8 % (11.6-13.7); WHITE BLOOD COUNT (AUTO) 6.6 K/uL (4.8-10.8)
[2023-10-23 06:04] LABS: CALCIUM 9.1 mg/dL (8.5-10.1); CARBON DIOXIDE 22.6 mmol/L (21-32); CREATININE 3.2 mg/dL (0.6-1.3); POTASSIUM 4.6 mmol/L (3.5-5.1)
== END 2023-10-23 14:10 | disposition home or self-care (01) | DRG 422 ==
LOC: MED 07:18 → MTU 11:28
PROVIDERS: ADMIT Internal Medicine; ATTEND Internal Medicine
DX: E86.0 Dehydration (principal); E44.0 Moderate protein-calorie malnutrition; E11.22 Type 2 diabetes mellitus with diabetic chronic kidney disease; N18.4 Chronic kidney disease, stage 4 (severe); N13.30 Unspecified hydronephrosis; I95.1 Orthostatic hypotension; I12.9 Hypertensive chronic kidney disease with stage 1 through stage 4 chronic kidney disease, or unspecified chronic kidney disease; N40.0 Benign prostatic hyperplasia without lower urinary tract symptoms; T83.83XA Hemorrhage due to genitourinary prosthetic devices, implants and grafts, initial encounter; Z20.822 Contact with and (suspected) exposure to COVID-19; R31.9 Hematuria, unspecified; F84.0 Autistic disorder; G89.29 Other chronic pain; Z79.899 Other long term (current) drug therapy; Z91.010 Allergy to peanuts; Z88.0 Allergy status to penicillin; Z91.018 Allergy to other foods; Z68.25 Body mass index [BMI] 25.0-25.9, adult
CPT/HCPCS: 36415; 70450; 71045; 76770; 80048; 80076; 81001; 82550; 82948; 83735; 83880; 84100; 84443; 84484; 85025; 85610; 85730; 87081; 87086; 87186; 93005; 96360; 97110; 97116; 97163-GP; 97530; 99285; J2405; Q0092

== ENCOUNTER 2023-10-25 17:30 | Inpatient (IN) | payer OTHER, MEDICARE ==
[~2023-10-25] VITALS: Ht 167.6 cm; Wt 111.1 kg
[2023-10-25 18:14] VITALS: BP 94/63; PULSE 61; RESP 16; TEMP 97.5; O2SAT 92
[2023-10-25 19:34] LABS: BASOPHILS % (AUTO) 0.2 % (0.0-2.0); EOSINOPHILS # (AUTO) 0.2 K/uL (0-0.4); EOSINOPHILS % (AUTO) 3.3 % (0.0-4.0); HEMATOCRIT 36.1 % (36-52); LYMPHOCYTES # (AUTO) 0.4 K/uL (2.0-11.5); LYMPHOCYTES % (AUTO) 7.1 % (20.5-51.1); MEAN CORPUSCULAR HEMOGLOBIN 34 pg (27-31); MEAN CORPUSCULAR HGB CONC 33 g/dL (33-37); MEAN CORPUSCULAR VOLUME 100.7 fL (80-94); MONOCYTES # (AUTO) 0.4 K/uL (0.8-1.0); MONOCYTES % (AUTO) 6.5 % (1.7-9.3); NEUTROPHILS # (AUTO) 4.9 K/uL (1.8-7.7); NEUTROPHILS % (AUTO) 82.9 % (42.2-75.2); PLATELET COUNT (AUTO) 119 K/uL (140-450); RED BLOOD CELL COUNT(AUTO) 3.58 MIL/uL (4.20-6.10); RED CELL DISTRIBUTION WIDTH 12.8 % (11.6-13.7)
[2023-10-25 19:43] LABS: ANION GAP 13.6 (8-16); CALCIUM 8.7 mg/dL (8.5-10.1); CARBON DIOXIDE 25.4 mmol/L (21-32)
[2023-10-25 19:46] LABS: INR 1.12 (0.8-1.2); PARTIAL THROMBOPLASTIN TIME 29.8 secs (22-35.6); PROTHROMBIN TIME 11.7 secs (10.8-13.4)
[2023-10-25 19:52] LABS: ALANINE AMINOTRANSFERASE 17 U/L (12-78); ALBUMIN 3.1 g/dL (3.4-5.0); ALKALINE PHOSPHATASE 70 U/L (50-136); ASPARTATE AMINOTRANSFERASE 11 U/L (15-37); BILIRUBIN,DIRECT 0.1 mg/dL (0.0-0.3); LACTIC ACID 1.6 mmol/L (0.4-2.0); TOTAL BILIRUBIN 0.5 mg/dL (0.0-1.0); TOTAL PROTEIN, SERUM 6.5 g/dL (6.4-8.2)
[2023-10-25 20:11] LABS: BILIRUBIN,URINE 1+ (NEGATIVE); BLOOD, URINE 3+ (NEGATIVE); COLOR,URINE YELLOW (YELLOW); LEUKOCYTE ESTERASE ,URINE 2+ (NEGATIVE); NITRITE, URINE POSITIVE (NEGATIVE); PROTEIN,URINE 3+ (NEGATIVE); UGLUCOSE NEGATIVE (NEGATIVE); UROBILINOGEN,URINE 0.2 EU/dL (0.2 - 1)
[2023-10-25 20:12] LABS: APPEARANCE,URINE SLIGHTLY CLOUDY (CLEAR)
[2023-10-25 20:17] LABS: ICTOTEST NEGATIVE (NEGATIVE)
[2023-10-25 20:18] LABS: BACTERIA,URINE 3+ /HPF (None Seen); MUCUS,URINE None Seen /LPF (None Seen); RBC,URINE 20-50 /HPF (0-5); SQUAMOUS EPITHELIAL CELL,UR 4-10 (MOD) /LPF (0-3 (FEW)); WBC,URINE 16-25 (MOD) /HPF (0-5)
[2023-10-25] MEDS ORDERED: VANCOMYCIN 1,000 MG VIAL ONE (22:18)
[2023-10-25] MEDS: VANCOMYCIN 1,000 MG in DEXTROSE 5% 250 ML IV ONE (22:19)
[2023-10-26] MEDS ORDERED: ACETAMINOPHEN 325 MG TAB PO PRN
[2023-10-26] MEDS ORDERED: MORPHINE SULFATE 4 MG/ML SYR IVP PRN
[2023-10-26] MEDS ORDERED: MAG SULF 2000 MG/WATER PREMIX 50 ML IV PRN
[2023-10-26] MEDS ORDERED: KCL 20 MEQ IN 100 mL PREMIX 200 ML IV PRN
[2023-10-26] MEDS ORDERED: POTASSIUM CHLORIDE 10 MEQ TABER PO PRN
[2023-10-26] MEDS ORDERED: MAGNESIUM OXIDE 400 MG TAB PO PRN
[2023-10-26] MEDS ORDERED: HYDROcodone/APAP 5/325 MG 1 TAB TAB PO PRN
[2023-10-26] MEDS ORDERED: ONDANSETRON 4 MG/2 ML VIAL IVP PRN
[2023-10-26] MEDS: NACL 0.9% 1,000 ML IV SCH (00:23)
[2023-10-26 00:55] VITALS: BP 98/75; PULSE 62; RESP 17; TEMP 97.8; O2SAT 99
[2023-10-26 04:00] VITALS: BP 127/71; PULSE 57; RESP 16; TEMP 97.5; O2SAT 91
[2023-10-26 08:00] VITALS: BP 111/64; PULSE 66; RESP 18; TEMP 96.9; O2SAT 96
[2023-10-26] MEDS: LEVOFLOXACIN 250 MG/D5 PREMIX 50 ML IV SCH (09:43)
[2023-10-26 16:00] VITALS: BP 109/63; PULSE 67; RESP 18; TEMP 97.5; O2SAT 99
[2023-10-26] MEDS ORDERED: DOCUSATE SODIUM 100 MG GELCAP PO SCH (16:35)
[2023-10-26 20:00] VITALS: BP 110/70; PULSE 65; RESP 18; TEMP 98.6; O2SAT 97
[2023-10-26] MEDS: MEDS-TO-BEDS MC SCH (20:55)
[2023-10-26] MEDS ORDERED: QUETIAPINE FUMARATE PO SCH (21:00)
[2023-10-26] MEDS: busPIRone 5 MG TAB PO SCH (21:16)
[2023-10-26] MEDS: lamoTRIgine 25 MG TAB PO SCH (21:16)
[2023-10-27 04:00] VITALS: BP 113/75; PULSE 66; RESP 18; TEMP 98.2; O2SAT 98
[2023-10-27 05:43] LABS: BASOPHILS % (AUTO) 0.2 % (0.0-2.0); EOSINOPHILS # (AUTO) 0.4 K/uL (0-0.4); EOSINOPHILS % (AUTO) 6.1 % (0.0-4.0); HEMATOCRIT 32.5 % (36-52); LYMPHOCYTES # (AUTO) 0.5 K/uL (2.0-11.5); LYMPHOCYTES % (AUTO) 8.6 % (20.5-51.1); MEAN CORPUSCULAR HEMOGLOBIN 34 pg (27-31); MEAN CORPUSCULAR HGB CONC 34 g/dL (33-37); MEAN CORPUSCULAR VOLUME 99.7 fL (80-94); MONOCYTES # (AUTO) 0.7 K/uL (0.8-1.0); MONOCYTES % (AUTO) 10.8 % (1.7-9.3); NEUTROPHILS # (AUTO) 4.5 K/uL (1.8-7.7); NEUTROPHILS % (AUTO) 74.3 % (42.2-75.2); PLATELET COUNT (AUTO) 133 K/uL (140-450); RED BLOOD CELL COUNT(AUTO) 3.26 MIL/uL (4.20-6.10); RED CELL DISTRIBUTION WIDTH 12.9 % (11.6-13.7); WHITE BLOOD COUNT (AUTO) 6.1 K/uL (4.8-10.8)
[2023-10-27 06:14] LABS: ALBUMIN 2.6 g/dL (3.4-5.0); ANION GAP 14.2 (8-16); CALCIUM 8.1 mg/dL (8.5-10.1); CARBON DIOXIDE 23.4 mmol/L (21-32); CREATININE 3.5 mg/dL (0.6-1.3); POTASSIUM 4.6 mmol/L (3.5-5.1); TOTAL BILIRUBIN 0.4 mg/dL (0.0-1.0); TOTAL PROTEIN, SERUM 5.7 g/dL (6.4-8.2)
[2023-10-27] MEDS ORDERED: DOCUSATE SODIUM 100 MG GELCAP PO PRN (07:19)
[2023-10-27 08:00] VITALS: BP 132/78; PULSE 65; PULSE 73; RESP 18; TEMP 98.1; TEMP 98.6; O2SAT 96; O2SAT 97
[2023-10-27] MEDS: TAMSULOSIN 0.4 MG CAP PO SCH (10:57)
[2023-10-27] MEDS: PARoxetine 20 MG TAB PO SCH (10:58)
[2023-10-27 16:00] VITALS: BP 128/77; PULSE 89; RESP 18; TEMP 97.8; O2SAT 98
[2023-10-27 20:00] VITALS: BP 137/79; PULSE 71; RESP 16; TEMP 98.4; O2SAT 99
[2023-10-27] MEDS: QUEtiapine FUMARATE 25 MG TAB PO SCH (20:09)
[2023-10-28 06:09] LABS: BASOPHILS % (AUTO) 0.4 % (0.0-2.0); EOSINOPHILS # (AUTO) 0.4 K/uL (0-0.4); EOSINOPHILS % (AUTO) 9.1 % (0.0-4.0); HEMATOCRIT 32.2 % (36-52); HEMOGLOBIN 11.1 g/dL (12.0-18.0); LYMPHOCYTES # (AUTO) 0.8 K/uL (2.0-11.5); LYMPHOCYTES % (AUTO) 16.9 % (20.5-51.1); MEAN CORPUSCULAR HEMOGLOBIN 34 pg (27-31); MEAN CORPUSCULAR HGB CONC 34 g/dL (33-37); MEAN CORPUSCULAR VOLUME 99.3 fL (80-94); MONOCYTES # (AUTO) 0.5 K/uL (0.8-1.0); MONOCYTES % (AUTO) 11.2 % (1.7-9.3); NEUTROPHILS # (AUTO) 2.8 K/uL (1.8-7.7); NEUTROPHILS % (AUTO) 62.4 % (42.2-75.2); PLATELET COUNT (AUTO) 149 K/uL (140-450); RED BLOOD CELL COUNT(AUTO) 3.25 MIL/uL (4.20-6.10); RED CELL DISTRIBUTION WIDTH 12.5 % (11.6-13.7); WHITE BLOOD COUNT (AUTO) 4.5 K/uL (4.8-10.8)
[2023-10-28 06:53] LABS: ALBUMIN 2.6 g/dL (3.4-5.0); ANION GAP 10.7 (8-16); CALCIUM 8.1 mg/dL (8.5-10.1); CARBON DIOXIDE 25.7 mmol/L (21-32); CREATININE 3.3 mg/dL (0.6-1.3); MAGNESIUM 2.1 mg/dL (1.8-2.4); POTASSIUM 4.4 mmol/L (3.5-5.1); TOTAL BILIRUBIN 0.3 mg/dL (0.0-1.0); TOTAL PROTEIN, SERUM 5.8 g/dL (6.4-8.2)
[2023-10-28 08:00] VITALS: BP 125/76; PULSE 101; PULSE 71; RESP 16; RESP 20; TEMP 98.4; O2SAT 98; O2SAT 99
[2023-10-28] MEDS ORDERED: LEVO-481 PO (13:44)
[2023-10-28 15:04] VITALS: BP 125/76; PULSE 101; RESP 20; TEMP 98.4
== END 2023-10-28 16:50 | disposition home or self-care (01) | DRG 137 ==
LOC: MED 17:30 → MTU 10-26 00:09 → MMU 10-26 00:36
PROVIDERS: ADMIT Hospitalist; ATTEND Hospitalist
DX: J69.0 Pneumonitis due to inhalation of food and vomit (principal); G93.41 Metabolic encephalopathy; N17.9 Acute kidney failure, unspecified; E43 Unspecified severe protein-calorie malnutrition; N39.0 Urinary tract infection, site not specified; N18.4 Chronic kidney disease, stage 4 (severe); J18.9 Pneumonia, unspecified organism; F84.0 Autistic disorder; N40.0 Benign prostatic hyperplasia without lower urinary tract symptoms; I12.9 Hypertensive chronic kidney disease with stage 1 through stage 4 chronic kidney disease, or unspecified chronic kidney disease; Z91.010 Allergy to peanuts; Z88.0 Allergy status to penicillin; Z91.018 Allergy to other foods; Z79.899 Other long term (current) drug therapy; Z68.39 Body mass index [BMI] 39.0-39.9, adult
CPT/HCPCS: 36415; 70450; 71045; 80048; 80053; 80076; 81001; 83605; 83735; 83880; 84484; 85025; 85610; 85730; 87040; 87081; 87086; 87186; 93005; 96374; 99285; J1956; J3370